=== PATIENT | male | born 2000 | race African-American/Black ===

== ENCOUNTER 2020-09-07 18:54 | Emergency (ER) | payer MEDICAID ==
[~2020-09-07] VITALS: Ht 185.4 cm; Wt 78.0 kg
[2020-09-07] MEDS ORDERED: SODIUM CHLORIDE 0.9% 1,000 ML IV ONE (19:30)
[2020-09-07 19:37] LABS: Basophils # (auto) 0 10 ^3/uL (0-0.2); Basophils % (auto) 0.6 % (0.0-2.0); Eosinophils # (auto) 0.1 10 ^3/uL (0-0.8); Eosinophils % (auto) 1.1 % (0.0-7.0); Hematocrit 47.2 % (41.0-53.0); Lymphocytes # (auto) 1.7 10 ^3/uL (0.4-5.4); Lymphocytes % (auto) 26.4 % (10.0-50.0); Mean Corpuscular Hemoglobin 28.7 pg (28.0-32.0); Mean Corpuscular Hgb Conc. 33.9 g/dL (32.0-36.0); Mean Corpuscular Volume 84.5 fL (80.0-100.0); Monocytes # (auto) 0.6 10 ^3/uL (0-1.3); Monocytes % (auto) 9.3 % (0.0-12.0); Neutrophils # (auto) 3.9 10 ^3/uL (1.6-8.6); Neutrophils % (auto) 62.6 % (37.0-80.0); Nucleated Red Blood Cells % 0.1 %; Platelet Count (auto) 281 10^3/uL (140-450); Red Blood Cells 5.58 10^6/uL (4.5-5.90); White Blood Cell 6.3 10^3/uL (4.4-10.8)
[2020-09-07 19:50] LABS: Albumin 4.4 g/dL (3.4-5.0); Anion Gap 8 (5-15); Blood Urea Nitrogen 14 mg/dL (7-18); Carbon Dioxide 27 mmol/L (21-32); Chloride 105 mmol/L (98-107); Glucose 144 mg/dL (74-106); Potassium 3.8 mmol/L (3.5-5.1); Sodium 140 mmol/L (136-145)
[2020-09-07 19:55] LABS: Alanine Aminotransferase 32 U/L (16-61); Alkaline Phosphatase 78 U/L (45-117); Aspartate Aminotransferase 13 U/L (15-37); BUN/Creatinine Ratio 13.5; Bilirubin, Total 0.4 mg/dL (0.2-1.0); GFR African American 118 mL/min; GFR Non-African American 98 mL/min; Total Protein 8.3 g/dL (6.4-8.2)
[2020-09-07] MEDS ORDERED: cloNIDine HCL 0.1 MG TAB PO ONE (21:15)
[2020-09-07 21:29] VITALS: BP 136/90
[2020-09-07 21:52] LABS: Amphetamine Screen, Urine NEGATIVE (NEGATIVE); Barbiturate Scree,Urine NEGATIVE (NEGATIVE); Benzodiazephine Screen, Urine NEGATIVE (NEGATIVE); Cannabinoid Screen, Urine NEGATIVE (NEGATIVE); Cocaine Screen, Urine NEGATIVE (NEGATIVE); Opiate Scree,Urine NEGATIVE (NEGATIVE); Phencyclidine Screen, Urine NEGATIVE (NEGATIVE)
== END 2020-09-07 21:43 | disposition home or self-care (01) ==
LOC: ER 18:54
DX: R07.89 Other chest pain (principal); R00.2 Palpitations; I10 Essential (primary) hypertension
CPT/HCPCS: 36415; 80053; 80307; 84484; 85025; 93005; 96360; 99284; J7030

== ENCOUNTER 2020-09-14 11:44 | Emergency (ER) | payer MEDICAID ==
[~2020-09-14] VITALS: Ht 188 cm; Wt 73.5 kg
[2020-09-14] MEDS ORDERED: diphenhdrAMINE HCL 50 MG/1 ML VL IM ONE (13:15)
[2020-09-14 13:40] VITALS: BP 148/89
== END 2020-09-14 13:56 | disposition home or self-care (01) ==
LOC: ER 11:44
DX: F41.1 Generalized anxiety disorder (principal); I10 Essential (primary) hypertension
CPT/HCPCS: 93005; 96372; 99283; J1200

== ENCOUNTER 2021-05-12 03:04 | Emergency (ER) | payer MEDICAID ==
[~2021-05-12] VITALS: Ht 188 cm; Wt 86.2 kg
[2021-05-12 06:11] VITALS: BP 157/92
[2021-05-12] MEDS ORDERED: KETOROLAC TROMETH 60MG/2ML VIAL IM ONE (06:15)
[2021-05-12] MEDS ORDERED: LIDO2SOL23 PO ×2 (06:43→07:02)
[2021-05-12] MEDS ORDERED: AZIT500T66 PO ×2 (06:43→07:02)
[2021-05-12] MEDS ORDERED: cefTRIAXone SOD 1,000 MG VL IM ONE (06:45)
== END 2021-05-12 07:11 | disposition home or self-care (01) ==
LOC: ER 03:04
DX: J03.90 Acute tonsillitis, unspecified (principal); Z79.2 Long term (current) use of antibiotics; Z79.899 Other long term (current) drug therapy
CPT/HCPCS: 87070; 87880; 96372; 99284; J0696; J1885